=== PATIENT | female | born 1965 | race Caucasian/White ===

== ENCOUNTER 2024-02-11 21:01 | Emergency (ER) | payer OTHER ==
[~2024-02-11] VITALS: Ht 165.1 cm; Wt 73.5 kg
[2024-02-11 22:19] VITALS: BP 133/83; TEMP 98.3; O2SAT 99
[2024-02-11] MEDS ORDERED: DIPH25CA83 PO (23:04)
[2024-02-11] MEDS ORDERED: VENL150T PO (23:04)
[2024-02-11] MEDS ORDERED: DIVA500T4 PO (23:04)
[2024-02-11] MEDS ORDERED: VENL75TA74 PO (23:04)
[2024-02-11] MEDS ORDERED: MUPI15CR TP (23:04)
== END 2024-02-11 23:20 | disposition home or self-care (01) ==
LOC: ER 21:06
DX: R21 Rash and other nonspecific skin eruption (principal); F41.9 Anxiety disorder, unspecified; Z76.0 Encounter for issue of repeat prescription